=== PATIENT | female | born 1975 | race Caucasian/White ===

== ENCOUNTER 2020-01-13 14:43 | Outpatient (REF) | payer OTHER, SELFPAY | END 2020-01-13 14:44 | disposition home or self-care (01) | LOC: HO.LAB 14:43 | PROVIDERS: Visit Provider Nurse Practitioner Family | DX: M79.10 Myalgia, unspecified site (principal); Z13.9 Encounter for screening, unspecified; R19.7 Diarrhea, unspecified; R11.2 Nausea with vomiting, unspecified | CPT/HCPCS: 87086 ==

== ENCOUNTER 2020-01-13 14:45 | Outpatient (REF) | payer OTHER, SELFPAY ==
[2020-01-13 17:10] LABS: Anion Gap 12 (12-20); Blood Urea Nitrogen 11 mg/dL (9-16); Calcium 9.6 mg/dL (8.4-10.2); Carbon Dioxide 32 mmol/L (22-29); Chloride 101 mmol/L (96-108); Estimated Glomerular Filt Rate > 60; Glucose Random 81 mg/dL (60-115); Sodium 141 mmol/L (135-145)
== END 2020-01-13 14:46 | disposition home or self-care (01) ==
LOC: HO.HMGCLDS 14:45
PROVIDERS: PCP Internal Medicine; Visit Provider Nurse Practitioner Family
DX: R11.2 Nausea with vomiting, unspecified (principal); R19.7 Diarrhea, unspecified; M79.10 Myalgia, unspecified site; Z13.9 Encounter for screening, unspecified
CPT/HCPCS: 80048; U0003

== ENCOUNTER 2020-05-07 08:49 | Outpatient (REF) | payer OTHER, SELFPAY ==
--- NOTE | ~2020-05-07 | MM_ITS ---
EXAMINATION: MM SCREENING DIGITAL BREAST TOMOSYNTHESIS, BILATERAL CLINICAL INFORMATION: Screening. Asymptomatic. The lifetime risk of breast cancer based on the Tyrer-Cuzick Model is 12.7%. COMPARISON: Mammography: April 10, 2019 and studies dating back to November 03, 2013 TECHNIQUE: Digital breast tomosynthesis is performed in both the craniocaudal and mediolateral oblique views along with computer-aided detection (CAD). Synthesized 2D images are generated from the tomosynthesis. FINDINGS: The breasts are heterogeneously dense, which may obscure small masses (ACR BI-RADS breast composition Category c). There are no significant masses, abnormal calcifications, or other abnormalities. MM/MM tomosynthesis screening BI IMPRESSION: There are no significant changes from prior study. ASSESSMENT: BI-RADS 1: Negative RECOMMENDATION: Routine annual mammography screening. This patient's information was entered into a reminder system with a target due date for their next mammogram.
== END 2020-05-07 08:50 | disposition home or self-care (01) ==
LOC: HO.MAMMO 08:49
PROVIDERS: Visit Provider Internal Medicine
DX: Z12.31 Encounter for screening mammogram for malignant neoplasm of breast (principal)
CPT/HCPCS: 77063; 77067

== ENCOUNTER 2021-05-12 09:54 | Outpatient (REF) | payer OTHER, SELFPAY ==
--- NOTE | ~2021-05-12 | MM_ITS ---
EXAMINATION: MM SCREENING DIGITAL BREAST TOMOSYNTHESIS, BILATERAL CLINICAL INFORMATION: Screening. Asymptomatic. The lifetime risk of breast cancer based on the Tyrer-Cuzick Model is 13%. COMPARISON: Mammography: 05/07/2020, 04/10/2019, 04/04/2018, 03/28/2017 TECHNIQUE: Digital breast tomosynthesis is performed in both the craniocaudal and mediolateral oblique views along with computer-aided detection (CAD). Synthesized 2D images are generated from the tomosynthesis. FINDINGS: There are scattered areas of fibroglandular density (ACR BI-RADS breast composition Category b). There are no significant masses, abnormal calcifications, or other abnormalities. Parenchymal pattern is similar to prior studies. There is no developing density. The axilla and skin contours are unremarkable. MM/MM tomosynthesis screening BI IMPRESSION: No mammographic evidence of malignancy. ASSESSMENT: BI-RADS 1: Negative RECOMMENDATION: Routine annual mammography screening. This patient's information was entered into a reminder system with a target due date for their next mammogram.
== END 2021-05-12 09:55 | disposition home or self-care (01) ==
LOC: HO.MAMMO 09:54
PROVIDERS: Visit Provider Internal Medicine
DX: Z12.31 Encounter for screening mammogram for malignant neoplasm of breast (principal)
CPT/HCPCS: 77063; 77067

== ENCOUNTER → 2021-06-06 15:59 | Outpatient (BNVA) | payer OTHER, SELFPAY | PROVIDERS: PCP Internal Medicine; Referring Provider Internal Medicine; Visit Provider Nurse Practitioner | DX: Z13.89 Encounter for screening for other disorder (principal) ==

== ENCOUNTER 2022-07-27 13:09 | Outpatient (REF) | payer OTHER, SELFPAY ==
--- NOTE | ~2022-07-27 | MM_ITS ---
EXAMINATION: MM SCREENING DIGITAL BREAST TOMOSYNTHESIS, BILATERAL CLINICAL INFORMATION: Screening. Asymptomatic. The lifetime risk of breast cancer based on the Tyrer-Cuzick Model is 13%. COMPARISON: Mammography: 05/12/2021, 05/07/2020, 04/10/2019 TECHNIQUE: Digital breast tomosynthesis is performed in both the craniocaudal and mediolateral oblique views along with computer-aided detection (CAD). Synthesized 2D images are generated from the tomosynthesis. FINDINGS: There are scattered areas of fibroglandular density (ACR BI-RADS breast composition Category b). There are no significant masses, abnormal calcifications, or other abnormalities. Parenchymal pattern is similar to prior studies. There is no developing density or architectural abnormality. The axilla and skin contours are unremarkable. No significant changes. MM/MM tomosynthesis screening BI IMPRESSION: No mammographic evidence of malignancy. ASSESSMENT: BI-RADS 1: Negative RECOMMENDATION: Routine annual mammography screening. This patient's information was entered into a reminder system with a target due date for their next mammogram.
== END 2022-07-27 13:10 | disposition home or self-care (01) ==
LOC: HO.MAMMO 13:09
PROVIDERS: PCP Internal Medicine; Visit Provider Internal Medicine
DX: Z12.31 Encounter for screening mammogram for malignant neoplasm of breast (principal)
CPT/HCPCS: 77063; 77067

== ENCOUNTER 2023-04-04 10:05 | Day surgery (SDC) | payer OTHER, SELFPAY ==
[2023-04-02 10:32] VITALS: BMI 24.8
--- NOTE | 2023-04-04 11:00 | HO.ANESPROP2 ---
[facility] Active Problems Active Problems: All Active Problems (Updated 04/02/23 @ 10:31 by Nuria King, RN) Colon cancer screening (Acute) Dental abscess (Acute) Generalized anxiety disorder (Acute) Annual physical exam (Acute) ADHD (Acute) Asthma (Acute) Past Medical History Medical History Cervical dysplasia Dysplasia of acetabulum ADHD Adnexal cyst Asthma Family History Family History Father CAD (coronary artery disease) S/P CABG x 1 Diabetes Hypertension CVD (cardiovascular disease) Mother No problems noted. Maternal Grandmother Lymphoma Brother Bipolar 1 disorder Family history of problems with anesthesia: No Surgical History Surgical History Hx of cystoscopy History of endoscopy History of in vitro fertilization History of section History of Problems with Anesthesia: No Social History Social History Housing: Apartment Alcohol intake: current Patient Tobacco Use Status: Never used Tobacco e-Cigarette/Vaping Use: Never Used Second Hand Smoke Exposure: No Current occupational status: employed Meds Allergies Allergy/AdvReac Type Severity Reaction Status Date / Time amoxicillin Allergy Unknown Unknown Verified 04/04/23 10:57 Penicillins Allergy Unknown Unknown Verified 04/04/23 10:57 Active Medications: Current Medications Ondansetron HCl (Ondansetron Hcl 4 Mg/2 Ml Vial) 4 mg IVPUSH ONCE PRN PRN Reason: Nausea and Vomiting Exam Height,Weight and Vital Signs: Height 5 ft 3 in Weight 63.503 kg Airway Mallampati Class: III TM Dist: >3cm Neck ROM: Full Loose/Missing/Broken Teeth: No Heart: rrr Lungs: clear Assessment and Plan Final Anesthetic Review Family History of Problems with Anesthesia: No History of Problems with Anesthesia: No ASA Class: II Final Preanesthetic Review: No Changes in Pt Med Stat, Meds/Allgs Chart Reviewed, Consent Obtained/Reviewed and Anes Risks/Benef Reviewed Patient Risk: Intermediate Procedure Risk: Low Anesthetic Plan Anesthetic Plan: MAC: Disposition: Standard PACU
[2023-04-04 11:04] VITALS: BMI 25.2
--- NOTE | 2023-04-04 11:19 | MHC.SHP ---
Pre-Procedural Eval Section A - 24 Hr Update-Section A only Date of Service: 04/04/23 Section B - Complete if H&P > 30 days Chief Complaint: Encounter for screening for malignant neoplasm of Details of Present Illness: PMX Asthma ADHD Acetabular dysplasia left hip Generalized anxiety disorder GERD * SURGICAL HISTORY section History of IVF Present Medications: see Short Stay Collaborative assessment Allergies: Allergies Allergy/AdvReac Type Severity Reaction Status Date / Time amoxicillin Allergy Unknown Unknown Verified 04/04/23 10:57 Penicillins Allergy Unknown Unknown Verified 04/04/23 10:57 Review of Systems Review of Systems Comment: Ten point ROS negative Exam Exam Comment: Gen appear: No acute distress HEENT: no icterus Chest: No overt resp distress Abd: soft, nontender, nondistended Psych: Stable affect, answering questions appropriately Neuro: A/Ox3 noted to move all extremities spontaneously Ext: no peripheral edema Plan Diagnosis/Plan: Unchanged I have reviewed the history and physical and performed a pertinent physical examination on my patient. No changes have occurred unless specified. Time Spent With Patient Time: Total time managing care of this patient today ____ minutes.
[2023-04-04 11:33] LABS: UPreg QC Valid YES; Urine Pregnancy NEGATIVE (NEGATIVE)
--- NOTE | 2023-04-04 11:59 | P.OP_ITS ---
Operative Note Operative Note Date of Service: 04/04/23 Narrative: Procedure: Colonoscopy Indication: Screening Endoscopist: Nusrat Obrien MD Anesthesia Provider: Dr Faustino Velez Anesthesia type: MAC Instrument: Olympus [id number]-H190L Consent: Indication, risks vs benefits, and alternatives were discussed with the patient who gave written informed consent to proceed. EKG, pulse, pulse oximetry and blood pressure were monitored throughout the procedure. Please see anesthesia flowsheet. Procedure: The patient was brought to the procedure room and placed in the left lateral decubitus position. IV medications were administered by the anesthesia provider in attendance. A digital rectal exam was performed which was abnormal due to finding of hemorrhoids. A distal attachment cap was affixed to the tip of the scope and the colonoscope was then inserted through the anus and advanced through the colon to the cecum at 75 cm,and terminal ileum. Appendiceal orifice and ileocecal valve were identified. Mucosa was carefully examined under high definition white light as the instrument was slowly withdrawn in a retrograde panoramic fashion. Retroflexion was performed in rectum. The procedure was not difficult. There were no immediate obvious complications. The quality of the prep was BBPS: 2+3+2 = adequate Withdrawal time 11 minutes. Limitations: No limitations. Findings: Mucosa: Normal to cecum and terminal ileum. Protruding lesions: * 1 sessile polyp of size 5 mm in cecum. Cold snare polypectomy was performed. The polyp was completely removed and retrieved. * Medium internal hemorrhoids without stigmata of recent bleeding. Impression: 1. Normal colon and terminal ileum mucosa 2. Total of 1 polyp removed 3. External and internal hemorrhoids Recommendations: - Follow path results. - Repeat colonoscopy in 5 years if polyp is a serrated lesion, otherwise 7-10 years.
[2023-04-04 12:05] VITALS: BP 109/76; PULSE 84; RESP 16; TEMP 37; O2SAT 100
[2023-04-04 12:20] VITALS: BP 132/87; PULSE 73; RESP 16; TEMP 36.7; O2SAT 100
== END 2023-04-04 12:54 | disposition home or self-care (01) ==
PROVIDERS: Anesthesiology; PCP Internal Medicine; Visit Provider Internal Medicine
PROC: 0DJD8ZZ Inspection of Lower Intestinal Tract, Via Natural or Artificial Opening Endoscopic (ICD-10-PCS; CPT 45378; principal; 2023-04-04 11:50)
DX: Z12.11 Encounter for screening for malignant neoplasm of colon (principal); K63.5 Polyp of colon; K64.8 Other hemorrhoids; K64.4 Residual hemorrhoidal skin tags; K21.9 Gastro-esophageal reflux disease without esophagitis; J45.909 Unspecified asthma, uncomplicated; N87.9 Dysplasia of cervix uteri, unspecified; Q65.89 Other specified congenital deformities of hip; F90.9 Attention-deficit hyperactivity disorder, unspecified type; F41.1 Generalized anxiety disorder; Z79.899 Other long term (current) drug therapy; Z88.0 Allergy status to penicillin; Z88.1 Allergy status to other antibiotic agents
CPT/HCPCS: 45385; 81025; 88305; J2704

== ENCOUNTER → 2023-04-04 10:05 | Outpatient (BNV) | payer OTHER, SELFPAY | PROVIDERS: PCP Internal Medicine; Visit Provider Internal Medicine | DX: Z12.11 Encounter for screening for malignant neoplasm of colon (principal); K63.5 Polyp of colon; K64.8 Other hemorrhoids | CPT/HCPCS: 45385 ==

== ENCOUNTER 2023-04-05 11:23 | Outpatient (AMB) | payer OTHER, SELFPAY ==
[2023-04-05 11:25] VITALS: BP 124/80; PULSE 73; O2SAT 100; BMI 25.3
--- NOTE | 2023-04-05 11:25 | MHC.PC.OV ---
Vital Signs 04/05/23 11:25 Height 5 ft 3 in Weight 64.886 kg BMI 25.3 BP 124/80 Blood Pressure Location Lt brachial Position Sitting Pulse 73 Pulse Source Pulse Oximeter Pulse Oximetry (%) 100 Oxygen Delivery Method Room Air Intake Visit Reasons: Annual Physical Intake Note: Patient is here today for a physical. Personal Clothing Laundry Aide Required: No Allergies amoxicillin Allergy (Unknown, Verified 04/05/23 11:27) Unknown Penicillins Allergy (Unknown, Verified 04/05/23 11:27) Unknown Medication List - Last Reconciled 04/05/23 by Dejuan Sal MD albuterol sulfate 90 mcg/actuation 2 puffs inhalation Q6H PRN bupropion HCl 300 mg PO QAM 90 days fexofenadine 180 mg PO DAILY multivitamin (Daily Multi-Vitamin tablet) 1 tab PO DAILY [probiotic ] Tobacco use date assessed: 04/05/23 Dental Screening Dental Screen Date: 04/05/23 Did you have a dental visit in the last 12 months?: Yes Did you have a dental problem in the last 6 months where you did not have access to dental care?: No Was dental information given to patient?: Patient has dentist HPI Annual Physical HPI Details 47-year-old female with a history of asthma and generalized anxiety disorder last seen in January 2021. Patient's mammogram is up-to-date colonoscopy is up-to-date March 2023. dizzy 3 week- father parkinson noted tremors and grandfather . [facility] Medical History (Updated 04/05/23 @ 12:14 by Dejuan Sal MD) Colon cancer screening Dental abscess Cervical dysplasia Dysplasia of acetabulum ADHD Adnexal cyst Asthma Surgical History Hx of cystoscopy History of endoscopy History of in vitro fertilization History of section Family History Father CAD (coronary artery disease) S/P CABG x 1 Diabetes Hypertension CVD (cardiovascular disease) Mother No problems noted. Maternal Grandmother Lymphoma Brother Bipolar 1 disorder Social History (Updated 04/05/23 @ 12:03 by Dejuan Sal MD) Housing: Apartment Alcohol intake: current Comment: 1 glass a week Patient Tobacco Use Status: Never used Tobacco e-Cigarette/Vaping Use: Never Used Second Hand Smoke Exposure: No Current occupational status: employed Cognitive needs: No Hearing needs: No Vision needs: No Questionnaire PHQ-9 Over the last 2 weeks, how often have you been bothered by any of the following problems? 1. Little interest or pleasure in doing things: not at all 2. Feeling down, depressed, or hopeless: not at all 3. Trouble falling or staying asleep, or sleeping too much: not at all 4. Feeling tired or having little energy: not at all 5. Poor appetite or overeating: not at all 6. Feeling bad about yourself - or that you are a failure or have let yourself or your family down: not at all 7. Trouble concentrating on things, such as reading the newspaper or watching television: not at all 8. Moving or speaking so slowly that other people could have noticed. Or the opposite - being so fidgety or restless that you have been moving around a lot more than usual: not at all 9. Thoughts that you would be better off or of hurting yourself in some way: not at all Total score: 0 Depression Screening Interpretation: Negative Depression Screening Done: Yes Source: Developed by Drs. Dameon Velarde, Diamond Padron, Iglesia Dillard and colleagues, with an educational mare from [employer] in [place]. Thrive Questionnaire Date Thrive assessed: 01/19/21 I am a: Patient What is your living situation today?: I have a steady place to live THRIVE Score: 0 AUDIT C Alcohol Use Questionnaire (AUDIT-C) 1. How often do you have a drink containing alcohol?: Monthly or less 2. How many drinks containing alcohol do you have on a typical day when you are drinking?: 1 or 2 3. How often do you have six or more drinks on one occasion?: Never Total Score: 1 DARIA-7 AMB Questionnaire DARIA-7 Date DARIA - 7 assessed: 04/05/23 Feeling nervous, anxious, or on edge: 0 = Not at all Not being able to stop or control worryin = Not at all Worrying too much about different things: 0 = Not at all Trouble relaxin = Not at all Being so restless that it is hard to sit still: 0 = Not at all Becoming easily annoyed or irritable: 0 = Not at all Feeling afraid as if something awful might happen: 0 = Not at all Total DARIA-7 score (0-4 normal; 5-9 mild; 10-14 moderate; 15-21 severe): 0 Source: Developed by Drs. Dameon Velarde, Diamond Padron, Iglesia Dillard and colleagues, with an educational mare from [employer] in [place]. Review of Systems Const Denies poor appetite and Denies weakness Eyes Denies no additional complaints ENT Reports Normal hearing present, Denies dizziness, Denies nasal congestion, Denies tinnitus and Denies sore throat Card Denies chest pain, Denies syncope, Denies rapid heart rate and Denies dyspnea Resp Denies cough and Denies dyspnea GI Denies change in stool character, Reports constipation, Denies diarrhea, Denies nausea and Denies vomiting Denies urinary frequency, Denies difficulty voiding and Denies dysuria Neuro Reports Normal hearing present, Denies confusion, Denies dizziness, Denies syncope and Denies weakness Psych Denies confusion Physical exam (Primary Care) Vital Signs: Last Vital Signs Pulse 73 04/05/23 11:25 BP 124/80 04/05/23 11:25 Pulse Ox 100 04/05/23 11:25 Oxygen Delivery Method Room Air 04/05/23 11:25 BMI result Body Mass Index 25.3 Tobacco/Smoking Status: Tobacco use Status Tobacco use date assessed 04/05/23 04/05/23 11:33 Patient Tobacco Use Status Never used Tobacco 04/05/23 12:03 e-Cigarette/Vaping Use Never Used 04/05/23 12:03 PHQ-9: PHQ-9 Score PHQ-9: Total score 0 04/05/23 12:00 Depression Screening Interpretation: Negative Thrive Assessment: Date of Thrive Assessment Date Thrive assessed 01/19/21 04/05/23 11:27 Const General: No confusion Orientation/consciousness: No confusion HENMT Head: Yes normocephalic Ears: external ears normal and TM's normal bilaterally Face and sinus: Yes normal facial exam Mouth: moist mucous membranes Throat: Yes tonsils normal Eyes Conjunctivae: conjunctivae normal Pupils: Equal, round and reactive pupils present and Pupil accommodation reflex normal Direct Ophthalmoscopy: normal light reflex Neck Neck: No lymphadenopathy Thyroid: Thyroid normal Chest Chest palpation & inspection: normal inspection of the chest Resp Effort & Inspection: normal respiratory effort and no audible wheezes Auscultation: clear to auscultation bilaterally, no crackles, no wheezes and lung sounds not diminished Cardio Rate: regular rate Rhythm: regular rhythm Peripheral pulses: radial pulses present and dorsalis pedis present GI Palpation (GI): no masses Auscultation: normal bowel sounds and normoactive bowel sounds Rectal Exam - Female: deferred Skin General skin exam: no rashes or lesions noted Rashes: no rashes Neuro General: No confusion Cranial nerves: Yes Equal, round and reactive pupils present and Yes Normal hearing present Cognition (Neuro): normal cognition Gait exam (Neuro): Normal gait present Motor exam (neuro): 5/5 motor strength present throughout Deep tendon reflexes (DTR's): Right brachioradialis reflex intensity grade: 2+, Left brachioradialis reflex intensity grade: 2+, Right patellar reflex intensity grade: 2+ and Left patellar reflex intensity grade: 2+ Extrem General: No edema Immunizations tetanus-diphtheria toxoids-Td 2 Lf unit-2 Lf unit/0.5 mL IM suspension Performing Provider: Dejuan Sal MD Performing Location: [facility] Administered by: Sania Jenkins CMA on 04/05/23 12:23 Dose Route Admin Location Dispensed Lot Number Expiration Date [employer] 0.5 mL IM Left Deltoid 0.5 mL [id number] 06/17/23 [address]-1 [employer] VIS Given Date VIS Provided VIS Publication Date 04/05/23 Single Vaccine 20 Eligibility Eligibility Date Funding Source Not [facility] Eligible 04/05/23 [facility] funds Assessment and Plan Assessment & Plan (1) Annual physical exam: Code(s): Z00.00 - Encounter for general adult medical examination without abnormal findings (2) Generalized anxiety disorder: Code(s): F41.1 - Generalized anxiety disorder Plan: Continue with present medication (3) Asthma: Code(s): J45.909 - Unspecified asthma, uncomplicated Plan: Continue with inhaler as needed (4) Essential tremor: Code(s): G25.0 - Essential tremor Plan: reassurance Orders: Orders Complete Blood Count Auto Diff Today F41.1 - Generalized anxiety disorder Comprehensive Met. Panel Today F41.1 - Generalized anxiety disorder Free T4 (Free Thyroxine) Today F41.1 - Generalized anxiety disorder Vitamin B12 and Folate Today F41.1 - Generalized anxiety disorder Lipid Panel Today E78.00 - Pure hypercholesterolemia, unspecified, F41.1 - Generalized anxiety disorder Thyroid Stimulating Hormone Today F41.1 - Generalized anxiety disorder UA w Microscopic Today F41.1 - Generalized anxiety disorder Td State Immunization Today Z23 - Encounter for immunization Coding Level of Care Code Est Pt Prev Care [id number]([id number]) Diagnoses Annual physical exam Z00.00 Generalized anxiety disorder F41.1 Asthma J45.909 Essential tremor G25.0
== END 2023-04-05 12:29 | disposition home or self-care (01) ==
PROVIDERS: PCP Internal Medicine; Visit Provider Internal Medicine
DX: Z00.00 Encounter for general adult medical examination without abnormal findings (principal); F41.1 Generalized anxiety disorder; J45.909 Unspecified asthma, uncomplicated; Z23 Encounter for immunization; G25.0 Essential tremor
CPT/HCPCS: 90471; 90714; 99396

== ENCOUNTER 2023-04-19 08:51 | Outpatient (REF) | payer OTHER, SELFPAY ==
[2023-04-19 09:10] LABS: MANUAL DIFF FLAG NO
[2023-04-19 10:00] LABS: Basophils Percent Auto 0.3 % (0-2); Eosinophils Percent Auto 0.9 % (0-4); Hematocrit 39.6 % (37.0-47.0); Hemoglobin 13.3 g/dl (12.0-16.0); Imm Gran Abs Auto 0.01 X10*3/uL (0.00-0.03); Imm Gran Pct Auto 0.3 % (0.0-0.4); Lymphocytes Absolute Auto 0.9 X10*3/uL (1.2-4.9); Lymphocytes Percent Auto 24.3 % (20-40); Mean Corpuscular HGB Conc 33.6 g/dl (31.0-35.0); Mean Corpuscular Hemoglobin 28.2 pg (27.0-33.0); Mean Corpuscular Volume 84.1 fL (80.0-98.0); Monocytes Absolute Auto 0.3 X10*3/uL (0.1-1.2); Monocytes Percent Auto 9.1 % (2-11); Neutrophils Absolute Auto 2.3 x10*3/uL (2.0-8.3); Neutrophils Percent Auto 65.1 % (45-73); Platelet Count 167 X10*3/uL (160-400); Red Blood Count 4.71 X10*6/uL (4.20-5.50); Red Cell Distribution Width 12.1 % (11.0-16.0); White Blood Count 3.5 X10*3/uL (4.8-10.8)
[2023-04-19 11:33] LABS: Alanine Aminotransferase 23 U/L (0-31); Albumin Level 4.4 g/dL (3.5-5.0); Alkaline Phosphatase 89 U/L (39-117); Anion Gap 9 (12-20); Aspartate Amino Transferase 22 U/L (5-31); Bilirubin Total 0.8 mg/dL (0.0-1.0); Blood Urea Nitrogen 15 mg/dL (9-16); Calcium 9.3 mg/dL (8.4-10.2); Carbon Dioxide 31 mmol/L (22-29); Chloride 105 mmol/L (96-108); Cholesterol 162 mg/dL (<200); Estimated Glomerular Filt Rate > 60; Glucose Random 87 mg/dL (60-115); HDL Cholesterol 67 mg/dL (>40); LDL Cholesterol Calculated 86 mg/dL (<100); Sodium 141 mmol/L (135-145); Total Protein 7.4 g/dL (6.5-8.0); Triglycerides 48 mg/dL (<150)
[2023-04-19 11:48] LABS: Appearance Urine Clear; Color Urine Yellow; Glucose Urine UA Negative (Negative); Leukocyte Esterase Urine Large (3+) (Negative); Nitrite Urine Negative (Negative); UMIC TRIGGER UA YES; Urine Blood Negative (Negative); Urine Ketones Negative (Negative); Urine Protein Negative (Neg-Trace)
[2023-04-19 11:52] LABS: Free T4 (Free Thyroxine) 0.95 ng/dL (0.71-1.85); Thyroid Stimulating Hormone 1.04 uIU/mL (0.32-4.0)
[2023-04-19 11:55] LABS: Folate 11.9 ng/mL (> or = 4.0); Vitamin B12 909 pg/mL (200-900)
[2023-04-19 12:05] LABS: Bacteria Urine 1+ (None Seen); Hyaline Casts Urine 0-2 /LPF (0-2); RBC Urine 0-2 /HPF (0-2); WBC Urine 0-5 /HPF (0-5)
== END 2023-04-19 08:52 | disposition home or self-care (01) ==
LOC: HO.LAB 08:51
PROVIDERS: PCP Internal Medicine; Visit Provider Internal Medicine
DX: F41.1 Generalized anxiety disorder (principal); E78.00 Pure hypercholesterolemia, unspecified
CPT/HCPCS: 36415; 80053; 80061; 81001; 82607; 82746; 84439; 84443; 85025

== ENCOUNTER 2023-04-19 10:00 | Outpatient (AMB) | payer OTHER, SELFPAY ==
[2023-04-19 10:04] VITALS: BP 111/78; PULSE 84; BMI 25.2
--- NOTE | 2023-04-19 10:04 | MHC.OFFVIS ---
Intake Vital Signs 04/19/23 10:04 Height 5 ft 3 in Weight 142 lb 6.698 oz BMI 25.2 BP 111/78 Blood Pressure Location Lt brachial Position Sitting Pulse 84 Intake Visit Reasons: S/P [place]; Dr. Obrien Intake Note: CC:Patient in office today in follow up s/p colonoscopy 04/04/23. Patient reports doing well and denies having any GI concerns today. Allergies amoxicillin Allergy (Unknown, Verified 04/19/23 10:11) Unknown Penicillins Allergy (Unknown, Verified 04/19/23 10:11) Unknown HPI S/P [place]; Dr. Obrien HPI Details Assessment & Plan (1) Colon cancer screening: Code(s): Z12.11 - Encounter for screening for malignant neoplasm of colon Plan: This is her first colonoscopy. She will have a lot of gas at times with gas trapping and feeling of pressure under the ribs, but no CIC or diarrhea. She takes pro and pre-biotics for this. She has a long hx of GERD, but it is generally well controlled. She had an EGD in the past for this that was negative, and thought she would need a repeat - but this is not an indication for an EGD. She denies any prior problems with anesthesia or sedation. Her asthma is well controlled and no card problems. NO ID problems. There is no known FHX of CRC or polyps. However, her parents have never spoken to her about her colonoscopy is so I prompt her that if she finds out differently to let us know as this would affect her risk and her follow-up intervals. Return office visit after the procedure. Orders: Orders Comprehensive Met. Panel Today Z12.11 - Encounter for screening for malignant neoplas m of colon Complete Blood Cou nt Auto Diff Today Z12.11 - Encounter for screening for malignant neoplas m of colon Medications: New peg 3350-electroly ginette 236-22.74-6.74 -5.86 gram (Golyt andrews) until feca l effluent is sabrina r; do not exceed a total volume of 2 ,000 mL 240 mL PO Q10M 1 day 4,000 mL 0RF Z12.11 - Encounter for screening for malignant neoplas m of colon LABS: Laboratory Tests 01/13/20 04/19/23 04/19/23 14:53 09:09 09:09 WBC 3.5 L Hgb 13.3 Hct 39.6 Plt Count 167 Estimated GFR > 60 AST Pending ALT Pending Alkaline Phosphata se Pending TSH Pending COLONOSCOPY 04/04/23 Findings: Mucosa: Normal to cecum and terminal ileum. Protruding lesions: 1 sessile polyp of size 5 mm in cecum. Cold snare polypectomy was performed. The polyp was completely removed and retrieved. Medium internal hemorrhoids without stigmata of recent bleeding. Impression: 1. Normal colon and terminal ileum mucosa 2. Total of 1 polyp removed 3. External and internal hemorrhoids Recommendations: - Follow path results. - Repeat colonoscopy in 5 years if polyp is a serrated lesion, otherwise 7-10 years. BIOPSY Received: 04/04/23 Diagnosis Cecum, polypectomy: Colonic mucosa with prominent lymphoid aggregates TODAY'S VISIT The procedure should be repeated in 10 years since the polyp was not an adenoma. The procedure was well tolerated. The results were explained and the patient is agreeable to the follow-up interval as stated. The bowel pattern has returned to normal. Education was provided to tell any 1st degree relatives about their findings to be sure that they are screened by age 45. Educated that they will be put on a recall list when it is time for their repeat scope but should they move out of state or away from the hospital they will need to remember along with their primary to repeat the procedure in a timely fashion to avoid any adverse complications. [facility] Medical History Colon cancer screening Dental abscess Cervical dysplasia Dysplasia of acetabulum ADHD Adnexal cyst Asthma Surgical History (Updated 04/19/23 @ 10:12 by JUANA Correa H/O colonoscopy Hx of cystoscopy History of endoscopy History of in vitro fertilization History of section Family History Father CAD (coronary artery disease) S/P CABG x 1 Diabetes Hypertension CVD (cardiovascular disease) Mother No problems noted. Maternal Grandmother Lymphoma Brother Bipolar 1 disorder Social History Housing: Apartment Alcohol intake: current Comment: 1 glass a week Patient Tobacco Use Status: Never used Tobacco e-Cigarette/Vaping Use: Never Used Second Hand Smoke Exposure: No Current occupational status: employed Cognitive needs: No Hearing needs: No Vision needs: No Review of Systems Const Denies fatigue, Denies fever(s), Denies night sweats, Denies poor appetite and Denies weight loss ENT Reports Normal hearing present, Denies dental pain, Denies dysphagia, Denies hearing loss, Denies mouth pain, Denies odynophagia, Denies throat swelling, Denies tongue swelling and Reports other (Dentition adequate) Card Reports no additional complaints Resp Reports no additional complaints GI Details: Denies abdominal pain, Denies melena, Denies bloating, Denies hematochezia, Denies constipation, Denies GI cramping, Denies dysphagia, Denies excessive flatus, Denies early satiety, Denies heartburn, Denies diarrhea, Denies nausea, Denies odynophagia, Denies vomiting and Denies hematemesis Skin/Breast Denies pruritus, Denies lesions, Denies rash and Denies jaundice Neuro Reports Normal hearing present and Denies Abnormal speech present Endo Denies fatigue Aller/Immun Denies throat swelling and Denies tongue swelling Physical Exam Vital Signs: Last Vital Signs Pulse 84 04/19/23 10:04 BP 111/78 04/19/23 10:04 BMI result Body Mass Index 25.2 Const General: cooperative, no acute distress, well developed and well groomed Nutritional Appearance: average body habitus and well nourished Orientation/consciousness: oriented to person, oriented to place and oriented to time Limitations: No language barrier HEENT Head: Yes normocephalic and Yes atraumatic Eyes General: appearance normal, both eyes and all related structures Pupils: Equal, round and reactive pupils present Neck Neck: Yes normal visual inspection and Yes no lymphadenopathy Thyroid: Thyroid normal Resp Effort & Inspection: normal respiratory effort and able to speak in complete sentences Auscultation: clear to auscultation bilaterally Cardio Rate: regular rate Rhythm: regular rhythm Heart sounds: Normal, physiologic split S2 sound present Peripheral pulses: radial pulses present and posterior tibial pulses present GI Inspection: No distended and No Abdominal panniculus present Palpation (GI): Soft to palpation, nontender, no guarding, not rigid and No hepatosplenomegaly present Percussion: Yes normal to percussion Auscultation: normal bowel sounds Rectal Exam - Female: deferred Skin General skin exam: no rashes or lesions noted, turgor normal, skin not dry, no jaundice, No spider nevi and no striae Rashes: no rashes Nails: normal Neuro General: oriented to person, oriented to place and oriented to time Cranial nerves: Yes Equal, round and reactive pupils present and Yes Normal hearing present Speech: No Abnormal speech present Extrem General: Yes normal to inspection, No clubbing, No cyanosis and No edema Psych Appearance: grossly normal and well kempt Mental Status: mental status grossly normal Speech and movement: Normal speech and movement present Affect: normal affect Attitude: cooperative Thought process: Normal thought process present and not confabulating Thought content: Normal thought content present Insight: Good insight present (Psych) Judgement: Good judgement present (Psych) Assessment & Plan Assessment & Plan (1) H/O colonoscopy: Comment: 2023 scope equaled lymphoid aggregate gets only repeat in 10 years Code(s): Z98.890 - Other specified postprocedural states Plan The procedure should be repeated in 10 years since the polyp was not an adenoma. The procedure was well tolerated. The results were explained and the patient is agreeable to the follow-up interval as stated. The bowel pattern has returned to normal. Education was provided to tell any 1st degree relatives about their findings to be sure that they are screened by age 45. Educated that they will be put on a recall list when it is time for their repeat scope but should they move out of state or away from the hospital they will need to remember along with their primary to repeat the procedure in a timely fashion to avoid any adverse complications. Coding Level of Care Code Est Pt Level 3 (39416) Diagnoses H/O colonoscopy Z98.890
== END 2023-04-19 10:20 | disposition home or self-care (01) ==
PROVIDERS: PCP Internal Medicine; Visit Provider Nurse Practitioner
DX: Z98.890 Other specified postprocedural states (principal)
CPT/HCPCS: 99213

== ENCOUNTER 2023-08-05 12:56 | Outpatient (REF) | payer OTHER, SELFPAY | END 2023-08-05 12:57 | disposition home or self-care (01) | LOC: HO.MAMMO 12:56 | PROVIDERS: PCP Internal Medicine; Visit Provider Internal Medicine | DX: Z13.21 Encounter for screening for nutritional disorder (principal) | CPT/HCPCS: 77063; 77067 ==

== ENCOUNTER → 2023-08-05 13:00 | Outpatient (BNV) | payer OTHER, SELFPAY | PROVIDERS: PCP Internal Medicine; Visit Provider Radiology Diagnostic Radiology | DX: Z12.31 Encounter for screening mammogram for malignant neoplasm of breast (principal) | CPT/HCPCS: 77063; 77067 ==

== ENCOUNTER 2024-04-10 11:23 | Outpatient (AMB) | payer OTHER, SELFPAY ==
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
[2024-04-10 11:35] VITALS: BP 120/72; PULSE 89; TEMP 36.2; O2SAT 95; BMI 25.7
--- OUTSIDE RECORDS SUMMARY | 2024-04-10 13:34 | XMS_ITS | Patient Health Record ---
Author Organization [facility] Address [address] [place] [address] Care Team Providers Care Electronic Commerce Specialist Name Role Phone JOHNSON LE M.D. Primary Care Provider KEMI Syed Unavailable [phone] Allergies Allergen (clinical drug ingredient) Drug/Non Drug Allergy documented on EMR Reaction Allergy Type Onset Date Status amoxicillin Amoxicillin hives Drug Allergy Act tommy Penicillin hives Drug Allergy Active Reason For Referral No Information Medications Medication SIG (Take, Route, Frequency, Duration) Notes Start Date End Date Status Wellbutrin 300 mg Once a day 12/12/2016 Active Fexofenadine HCl 180 MG 1 tablet Swallow whole with water; do not take with fruit juices. Orally Once a day for 30 day(s) Active Albuterol PRN NEEDED Active Mirena (52 MG) 20 MCG/DAY as directed Intrauterine Inserted 08/21/17 Active Social History Tobacco Use: Social History Observation Description Date Details (start date - stop date) Never Smoker NA - NA Tobacco Use/Smoking Question Answer Notes Are you a nonsmoker Sexual History Question Answer Notes Had sex in the past 12 months (vaginal, oral, or anal)? Yes with Men only Prevention strategies discussed: Other Tobacco use other than smoking: Question Answer Notes Are you an other tobacco user? No Problems Problem Type SNOMED Code ICD Code Onset Dates Problem Status W/U Status Risk Notes Problem Excessive and frequent menstruation (679207597) Excessive and frequent menstruation with regular cycle (N92.0) Active confirmed Problem Postmenopausal bleeding (98856778) Postmenopausal bleeding (N95.0) Active confirmed Problem Attention deficit hyperactivity disorder, predominantly inattentive type (13375455) Attention-deficit hyperactivity disorder, predominantly inattentive type (F90.0) Active confirmed Problem Uncomplicated asthma (disorder) (438498424) Unspecified asthma, uncomplicated (J45.909) Active confirmed Problem Postcoital bleeding (22404223) Postcoital and contact bleeding (N93.0) Active confirmed Problem Abnormal uterine bleeding (81138532212690) Abnormal uterine and vaginal bleeding, unspecified (N93.9) Active confirmed Problem COVID-19 (820835266) COVID-19 (U07.1) Active confirmed Vital Signs Temperature 98.0 degrees Fahrenheit 01/24/2024 Blood pressure diastolic 78 mm Hg 01/24/2024 Height 64 in 01/24/2024 Blood pressure systolic 120 mm Hg 01/24/2024 Weight 146 lbs 01/24/2024 BMI 25.06 kg/m2 01/24/2024 Encounters Encounter Location Date Provider Diagnosis [address] [address] 01/24/2024 KEMI KENDALL Encounter for gynecological examination (general) (routine) without abnormal findings Z01.419 ; Encounter for screening mammogram for malignant neoplasm of breast Z12.31 and Presence of (intrauterine) contraceptive device Z97.5 Assessments Encounter Date Diagnosis (ICD Code) Assessment Notes Treatment Notes Treatment Clinical Notes Section Notes 01/24/2024 Encounter for gynecological examination (general) (routine) without abnormal findings (ICD-10 - Z01.419) During the visit, the following areas of concern were addressed: Discussed cervical cancer screening with either cytology alone every 3 years or high risk HPV co-testing every 5 years as per ASCCP guidelines. Advised continued annual pelvic exams. Patient encouraged to increase her level of exercise. SBE technique encouraged/taug ht. Patient reminded when annual mammogram is due. Patient encouraged to keep colon screening up to date. 01/24/2024 Encounter for screening mammogram for malignant neoplasm of breast (ICD-10 - Z12.31) 01/24/2024 Presence of (intrauterine) contraceptive device (ICD-10 - Z97.5) Continue Mirena until 2025. Then assess the need for replacement Plan Of Treatment Pending Test Test Name Order Date Test, Urine 06/29/2016 Ultrasound : Sono Hystergram 06/13/2016 THIN PREP,HPV,MAURICIO IF HPV+/CYT-,CT/GC(>2 9YR)(SCRN) 06/14/2017 PELVIC ULTRASOUND W/TRANSVAGINAL 019 ULTRASOUND: PELVIC W/TRANSVAGINAL 2022 MM Digital Screening Mammogram 3D 2022 MM Digital Screening Mammogram 3D 2023 MM Digital Screening Mammogram 3D 2021 MM Digital Screening Mammogram 3D 2018 Next Appt Details Provider Name:KEMI Kaylin Tolliver, 01/29/2025 10:30:00 AM, [address], [address], [place], [address], Insurance Providers Payer Name Payer Address Payer Phone Subscriber Number Group Number Insured Name Patient Relationship to Insured Coverage Start Date Coverage End Date [facility] [address] [place] [address] [id number] MARZENA RANDOLPH Self - patient is the insured Medical (General) History Medical History History ICD Code Unspecified asthma, uncomplicated J45.90 9 Excessive and frequent menstruation with regular cycle N92.0 Postcoital and contact bleeding N93.0 Mastodynia N64.4 Other intra-abdominal and pelvic swellin g, mass and lump R19.09 Attention-deficit hyperactivity disorder , predominantly inattentive type F90.0 COVID-19 U07.1 Surgical History Surgery Date(Month/Year) 2011 Hospitalization History Reason Date(Month/Year) See Surgical Hx
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
== END 2024-04-10 12:21 | disposition home or self-care (01) ==
PROVIDERS: PCP Internal Medicine; Visit Provider Internal Medicine
DX: Z00.00 Encounter for general adult medical examination without abnormal findings (principal); J45.909 Unspecified asthma, uncomplicated; F41.1 Generalized anxiety disorder; H91.90 Unspecified hearing loss, unspecified ear; Z23 Encounter for immunization

== ENCOUNTER → 2024-04-10 11:23 | Outpatient (BNVA) | payer OTHER, SELFPAY | PROVIDERS: PCP Internal Medicine; Visit Provider Internal Medicine | DX: Z00.00 Encounter for general adult medical examination without abnormal findings (principal); Z23 Encounter for immunization; J45.909 Unspecified asthma, uncomplicated; F41.1 Generalized anxiety disorder; H91.90 Unspecified hearing loss, unspecified ear; F90.9 Attention-deficit hyperactivity disorder, unspecified type; Z79.899 Other long term (current) drug therapy | CPT/HCPCS: 90471; 90656; 96127 ==

== ENCOUNTER 2024-05-07 12:54 | Outpatient (REF) | payer OTHER, SELFPAY ==
--- OUTSIDE RECORDS SUMMARY | 2024-05-07 15:57 | XMS_ITS ---
Author Organization [facility] Address [address] [place] [address] Care Team Providers Care Retail Banking Manager Name Role Phone JOHNSON LE M.D. Primary Care Provider KEMI Syed Unavailable [phone] Allergies Allergen (clinical drug ingredient) Drug/Non Drug Allergy documented on EMR Reaction Allergy Type Onset Date Status amoxicillin Amoxicillin hives Drug Allergy Act tommy Penicillin hives Drug Allergy Active REASON FOR VISIT Annual QUEEN PRODUCER Physical Medications Medication SIG (Take, Route, Frequency, [...] Status Risk Notes Problem Abnormal uterine bleeding (90114218101863) Abnormal uterine and vaginal bleeding, unspecified (N93.9) Active confirmed Problem Postmenopausal bleeding (18346717) Postmenopausal bleeding (N95.0) Active confirmed Vital Signs Temperature 98.0 degrees Fahrenheit 01/24/20 24 Blood pressure systolic 120 mm Hg 01/24/20 24 Blood pressure diastolic 78 mm Hg 024 Height 64 in 01/24/2024 Weight 146 lbs 01/24/2024 BMI 25.06 kg/m2 01/24/2024 Encounters Encounter Location Date Provider Diagnosis [address] [address] 01/24/2024 KEMI VICENTES Encounter for gynecological examination (general) (routine) without [...] Follow Up: 1 Year, Reason: Y early Banana Loader Exam Provider Name:KEMI VICENTE Unruly, 01/29/2025 10:30:00 AM, [address], [address], [place], [address], Progress Notes * LORI RANDOLPH :1975 (48 yo F)Acc No.[id number]:01/24/2024 PROGRESS NOTES Patient:?LORI RANDOLPH Provider:?KEMI KENDALL MD :1975???Age:48 Y???Sex:Female D ate:01/24/2024 Address:[address] [place] [address] [facility] Pcp:JOHNSON LE M.D. 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 ? She has been in state [...] last mammogram was 04/2023, per pt, at [place]. ? She does not have a family history of colon cancer. She has had a colonoscopy. The most recent colonoscopy was in?04/2023, follow up in 5 yrs due to a polyp. ? The patient does exercise. She exercises x 3-4 days/week by walking. She also plays?sports with her son. * ROS:?Annual Banana Loader Exam ROS:?Bowel habit changes?denies.?Bladder symptoms?denies.?Vaginal discharge, unusual?denies.?Vaginal itch or odor?denies.?weight or appetite changes?denies.?Chest pains, SOB?denies.?depression?denies.?Breast:?Denies?Breast lump.?Denies?Nipple discharge.?Hematology:?Denies?Swollen glands.?Skin:?Patient denies?changing moles.?Psychiatric:?Denies?Anxiety.? * Medical History:? * Banana Loader History:?/ Para?1/1.?Sexual activity?currently sexually active.?Last Pap Smear:?05/11/2020 NIL, NEG HPV, 06/14/17 NIL, NEG HRHPV, 2015.?Mammogram:?05/2023 [facility], 04/2022 Per patient, 04/2021 PER PT IN [place], 05/07/20 [facility], [facility], 03/2017 normal (elsewhere), 2016 Dense Breasts.?Abnormal Pap Smear:?about 2011, positive HRHPV. COLP DONE, NIL SINCE.?LMP and menses?Occ with IUD.?History of STD's:?none.? Control:?Mirena 08/21/17.?Colonoscopy?03/2022.?*Hep B Vac?1998.?QUEEN PRODUCER HISTORY MISC.?06/14/17 Dense breasts counseling done. Taylor [...] , Kieran. ?Natural support system: yes. 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 ?Pets: dogs: 2 - lab-[employer]; husky-terrier. ?Sexual abuse: no. ?Sexually active: yes, [...] no acute distress, well developed, well nourished, propagator present in room.?HEAD:?normocephalic, atraumatic.?NECK/THYROID:?neck supple, full range [...] muscle mass and strength. 'Sarco' is the Tunisian word referring to flesh, and 'penia' means [...] * Follow Up:?1 Year (Reason: Y early Banana Loader Exam) * Images: Billing Information: * Visit Code:? 11216 Preventive Care Est Pt. Age 40-64. * Procedure Codes:? 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 She has been in state of [...] last mammogram was 04/2023, per pt, at [place]. She does not have a family history [...] ac alexis distress, well developed, well nourished, propagator present in room HEAD: normocephalic, atrau matic [...]
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
--- OUTSIDE RECORDS SUMMARY | 2024-05-07 15:57 | XMS_ITS | Patient Health Record ---
Author Organization [facility] Address [address] [place] [address] Care Team Providers Care Track Service Person Name Role Phone JOHNSON LE M.D. Primary Care Provider KEMI Syed Unavailable [phone] Allergies Allergen (clinical drug ingredient) Drug/Non Drug [...] Risk Notes Problem Excessive and frequent menstruation (984156541) Excessive and frequent menstruation with regular cycle (N92.0) Active confirmed Problem Postmenopausal bleeding (75314640) Postmenopausal bleeding (N95.0) Active confirmed Problem Attention deficit hyperactivity disorder, predominantly inattentive type (69451817) Attention-deficit hyperactivity disorder, predominantly inattentive type (F90.0) Active confirmed Problem Uncomplicated asthma (disorder) (299321376) Unspecified asthma, uncomplicated (J45.909) Active confirmed Problem Postcoital bleeding (80628708) Postcoital and contact bleeding (N93.0) Active confirmed Problem Abnormal uterine bleeding (54111984720820) Abnormal uterine and vaginal bleeding, unspecified (N93.9) Active confirmed Problem COVID-19 (383087678) COVID-19 (U07.1) Active confirmed Vital Signs Temperature 98.0 degrees Fahrenheit 01/24/2024 Blood pressure diastolic 78 mm Hg 01/24/2024 Height 64 in 01/24/2024 Blood pressure systolic 120 mm Hg 01/24/2024 Weight 146 lbs 01/24/2024 BMI 25.06 kg/m2 01/24/2024 Encounters Encounter Location Date Provider Diagnosis [address] [address] 01/24/2024 KEMI KENDALL Encounter for gynecological examination [...] Name:KEMI Kaylin Tolliver, 01/29/2025 10:30:00 AM, [address], [address], [place], [address], Insurance Providers Payer Name Payer Address Payer Phone Subscriber Number Group Number Insured Name Patient Relationship to Insured Coverage Start Date Coverage End Date [facility] [address] [place] [address] [id number] MARZENA RADNOLPH Self - patient is the insured Medical [...]
== END 2024-05-07 12:55 | disposition home or self-care (01) ==
LOC: HO.SH 12:54
PROVIDERS: Visit Provider Internal Medicine
DX: Z01.118 Encounter for examination of ears and hearing with other abnormal findings (principal); H93.293 Other abnormal auditory perceptions, bilateral
CPT/HCPCS: 92557; 92567

== ENCOUNTER 2024-08-10 12:53 | Outpatient (REF) | payer OTHER, SELFPAY ==
--- OUTSIDE RECORDS SUMMARY | 2024-08-10 13:15 | XMS_ITS | Patient Health Record ---
Author Organization [employer] [facility] Address [address] [place] [address] Care Team Providers Care Filter Tank Tender Helper Name Role Phone JOHNSON LE M.D. Primary Care Provider KEMI Syed Unavailable [phone] Allergies Allergen (clinical drug ingredient) Drug/Non Drug [...] take with fruit juices. Orally Once a day; Duration: 30 day(s) Active Albuterol PRN NEEDED Active [...] Risk Notes Problem Excessive and frequent menstruation (942235588) Excessive and frequent menstruation with regular cycle (N92.0) Active confirmed Problem Postmenopausal bleeding (90982172) Postmenopausal bleeding (N95.0) Active confirmed Problem Attention deficit hyperactivity disorder, predominantly inattentive type (45892474) Attention-deficit hyperactivity disorder, predominantly inattentive type (F90.0) Active confirmed Problem Uncomplicated asthma (disorder) (452231033) Unspecified asthma, uncomplicated (J45.909) Active confirmed Problem Postcoital bleeding (46502075) Postcoital and contact bleeding (N93.0) Active confirmed Problem Abnormal uterine bleeding (02692466292208) Abnormal uterine and vaginal bleeding, unspecified (N93.9) Active confirmed Problem COVID-19 (419202135) COVID-19 (U07.1) Active confirmed Vital Signs Temperature 98.0 degrees Fahrenheit 01/24/2024 Blood pressure diastolic 78 mm Hg 01/24/2024 Height 64 in 01/24/2024 Blood pressure systolic 120 mm Hg 01/24/2024 Weight 146 lbs 01/24/2024 BMI 25.06 kg/m2 01/24/2024 Encounters Encounter Location Date Provider Diagnosis [address] [address] 01/24/2024 KEMI KENDALL Encounter for gynecological examination [...] 3D 2018 Next Appt Details Provider Name:KEMI VICENTE Unruly, 01/29/2025 10:30:00 AM, [address], [address], [place], [address], Insurance Providers Payer Name Payer Address Payer Phone Subscriber Number Group Number Insured Name Patient Relationship to Insured Coverage Start Date Coverage End Date [facility] [address] [place] [address] [id number] MARZENA RANDOLPH Self - patient is the [...]
== END 2024-08-10 12:54 | disposition home or self-care (01) ==
LOC: HO.MAMMO 12:53
PROVIDERS: PCP Internal Medicine; Visit Provider Internal Medicine
DX: Z12.31 Encounter for screening mammogram for malignant neoplasm of breast (principal)
CPT/HCPCS: 77063; 77067

== ENCOUNTER → 2024-08-10 13:00 | Outpatient (BNV) | payer OTHER, SELFPAY | PROVIDERS: PCP Internal Medicine; Visit Provider Internal Medicine | DX: Z12.31 Encounter for screening mammogram for malignant neoplasm of breast (principal) | CPT/HCPCS: 77063; 77067 ==

== ENCOUNTER 2024-10-23 10:40 | Outpatient (REF) | payer OTHER, SELFPAY ==
[2024-10-23 10:50] LABS: MANUAL DIFF FLAG NO
[2024-10-23 11:18] LABS: Hematocrit 37.7 % (37.0-47.0); Hemoglobin 13.0 g/dl (12.0-16.0); Imm Gran Abs Auto 0.01 X10*3/uL (0.00-0.03); Imm Gran Pct Auto 0.3 % (0.0-0.4); Lymphocytes Absolute Auto 0.7 X10*3/uL (1.2-4.9); Mean Corpuscular HGB Conc 34.5 g/dl (31.0-35.0); Mean Corpuscular Hemoglobin 28.3 pg (27.0-33.0); Mean Corpuscular Volume 82.1 fL (80.0-98.0); NRBC Abs Auto 0.000 X10*3/uL (0.0-0.012); NRBC Pct Auto 0.0 /100WBC (0.0-0.2); Platelet Count 161 X10*3/uL (160-400); Red Blood Count 4.59 X10*6/uL (4.20-5.50); Reticulocytes Absolute 0.068 X10*6/uL (0.026-0.095); White Blood Count 3.7 X10*3/uL (4.8-10.8)
--- OUTSIDE RECORDS SUMMARY | 2024-10-23 12:15 | XMS_ITS | Patient Health Record ---
Author Organization [employer] [facility] Address [address] [place] [address] Care Team Providers Care Orthopedic Rn Name Role Phone JOHNSON LE M.D. Primary Care Provider KEMI Syed Unavailable [phone] Allergies Allergen (clinical drug ingredient) Drug/Non Drug [...] Risk Notes Problem Excessive and frequent menstruation (161676325) Excessive and frequent menstruation with regular cycle (N92.0) Active confirmed Problem Postmenopausal bleeding (97084785) Postmenopausal bleeding (N95.0) Active confirmed Problem Attention deficit hyperactivity disorder, predominantly inattentive type (52875383) Attention-deficit hyperactivity disorder, predominantly inattentive type (F90.0) Active confirmed Problem Uncomplicated asthma (disorder) (549839526) Unspecified asthma, uncomplicated (J45.909) Active confirmed Problem Postcoital bleeding (58263029) Postcoital and contact bleeding (N93.0) Active confirmed Problem Abnormal uterine bleeding (69089338744809) Abnormal uterine and vaginal bleeding, unspecified (N93.9) Active confirmed Problem COVID-19 (662614807) COVID-19 (U07.1) Active confirmed Vital Signs Temperature 98.0 degrees Fahrenheit 01/24/2024 Blood pressure diastolic 78 mm Hg 01/24/2024 Height 64 in 01/24/2024 Blood pressure systolic 120 mm Hg 01/24/2024 Weight 146 lbs 01/24/2024 BMI 25.06 kg/m2 01/24/2024 Encounters Encounter Location Date Provider Diagnosis [address] [address] 01/24/2024 KEMI KENDALL Encounter for gynecological examination [...] Name:KEMI VICENTE Unruly, 01/29/2025 10:30:00 AM, [address], [address], [place], [address], Insurance Providers Payer Name Payer Address Payer Phone Subscriber Number Group Number Insured Name Patient Relationship to Insured Coverage Start Date Coverage End Date [facility] [address] [place] [address] [id number] MARZENA RANDOLPH Self - patient is the [...]
[2024-10-23 12:35] LABS: Alanine Aminotransferase 32 U/L (0-31); Albumin Level 4.7 g/dL (3.5-5.0); Alkaline Phosphatase 100 U/L (39-117); Anion Gap 10 (12-20); Aspartate Amino Transferase 28 U/L (5-31); Blood Urea Nitrogen 15 mg/dL (9-16); Calcium 9.1 mg/dL (8.4-10.2); Carbon Dioxide 29 mmol/L (22-29); Chloride 105 mmol/L (96-108); Cholesterol 164 mg/dL (<200); Estimated Glomerular Filt Rate 58; HDL Cholesterol 62 mg/dL (>40); Iron 92 mcg/dL (30-160); Percent Iron Saturation 35 % (15-50); Potassium 3.7 mmol/L (3.3-5.1); Sodium 140 mmol/L (135-145); Total Iron Binding Capacity 264 mcg/dL (228-428); Total Protein 7.3 g/dL (6.5-8.0); Triglycerides 48 mg/dL (<150); Unsaturated Iron Binding 172 ug/dL
[2024-10-23 12:40] LABS: Ferritin 115 ng/mL (10-250); Free T4 (Free Thyroxine) 1.00 ng/dL (0.71-1.85); Thyroid Stimulating Hormone 1.44 uIU/mL (0.32-4.0)
[2024-10-23 12:56] LABS: Folate 12.9 ng/mL (> or = 4.0); Vitamin B12 801 pg/mL (200-900)
== END 2024-10-23 10:41 | disposition home or self-care (01) ==
LOC: HO.LAB 10:40
PROVIDERS: PCP Internal Medicine; Visit Provider Internal Medicine
DX: F41.1 Generalized anxiety disorder (principal); E78.00 Pure hypercholesterolemia, unspecified
CPT/HCPCS: 36415; 80053; 80061; 82306; 82607; 82728; 82746; 83540; 84439; 84443; 85025; 85045

== ENCOUNTER 2024-12-22 11:28 | Outpatient (AMB) | payer OTHER, SELFPAY ==
[2024-12-22 11:39] VITALS: BP 118/78; PULSE 77; TEMP 36.3; O2SAT 97; BMI 26.4
--- NOTE | 2024-12-22 11:39 | A.OFFPC_ITS ---
Vital Signs 12/22/24 11:39 Height 5 ft 3 in Weight 149 lb 2 oz BMI 26.4 BP 118/78 Blood Pressure Location Lt brachial Position Sitting Pulse 77 Pulse Source Pulse Oximeter Temp 97.3 F Temp Source Temporal Artery Scan Pulse Oximetry (%) 97 Oxygen Delivery Method Room Air Intake Visit Reasons: Tick bite Allergies amoxicillin Allergy (Unknown, Verified 12/22/24 11:42) Unknown Penicillins Allergy (Unknown, Verified 12/22/24 11:42) Unknown Medication List - Last Reconciled 12/22/24 by Marlena Monaco MD albuterol sulfate 90 mcg/actuation 2 puffs inhalation Q6H PRN bupropion HCl XL 300 mg PO QAM 90 days doxycycline hyclate 100 mg PO BID 10 days fexofenadine 180 mg PO DAILY multivitamin (Daily Multi-Vitamin tablet) 1 tab PO DAILY [probiotic ] Tobacco use date assessed: 12/22/24 Dental Screening Dental Screen Date: 12/22/24 Did you have a dental visit in the last 12 months?: Yes Did you have a dental problem in the last 6 months where you did not have access to dental care?: No Was dental information given to patient?: Patient has dentist HPI HPI Comments History of Present Illness Details The patient is a 49-year-old female presenting for evaluation of a tick bite. She discovered and removed a tick from the left side of her abdomen on Saturday and is concerned about potential Lyme disease. The duration of the tick's attachment is unknown, but she suspects it may have been for a few days, possibly longer than 24 hours. The patient reports that the area is warm and she has been applying antibacterial cream. She reports feeling a little rundown and chilly this morning but denies any fever, headaches, or myalgias. The patient has no personal history of Lyme disease and has never previously received a course of antibiotics for a tick bite. She notes that [place] frequently in [place] and takes precautions such as wearing bright colors and checking for ticks. [facility] Medical History Colon cancer screening Dental abscess Cervical dysplasia Dysplasia of acetabulum ADHD Adnexal cyst Asthma Surgical History H/O colonoscopy Hx of cystoscopy History of endoscopy History of in vitro fertilization History of section Family History Father CAD (coronary artery disease) S/P CABG x 1 Diabetes Hypertension CVD (cardiovascular disease) Mother No problems noted. Maternal Grandmother Lymphoma Brother Bipolar 1 disorder Other Mental health disorder Social History Housing: Apartment Alcohol intake: current Comment: 1 glass a week or 2 glasses a month Patient Tobacco Use Status: Never used Tobacco e-Cigarette/Vaping Use: Never Used Second Hand Smoke Exposure: No service: No Current occupational status: employed Cognitive needs: No Hearing needs: No Vision needs: No Questionnaire PHQ-9 Over the last 2 weeks, how often have you been bothered by any of the following problems? 1. Little interest or pleasure in doing things: not at all 2. Feeling down, depressed, or hopeless: not at all 3. Trouble falling or staying asleep, or sleeping too much: not at all 4. Feeling tired or having little energy: not at all 5. Poor appetite or overeating: not at all 6. Feeling bad about yourself - or that you are a failure or have let yourself or your family down: not at all 7. Trouble concentrating on things, such as reading the newspaper or watching television: not at all 8. Moving or speaking so slowly that other people could have noticed. Or the opposite - being so fidgety or restless that you have been moving around a lot more than usual: not at all 9. Thoughts that you would be better off or of hurting yourself in some way: not at all Total score: 0 Depression Screening Interpretation: Negative Depression Screening Done: Yes Source: Developed by Drs. Dameon Velarde, Diamond Padron, Iglesia Dillard and colleagues, with an educational mare from [employer]. Thrive Questionnaire Date Thrive assessed: 04/08/24 I am a: Patient What is your living situation today?: I have a steady place to live Within the past 12 months, did the food you bought not last and you didn't have the money to get more?: Never true Within the past 12 months, did you worry whether your food would run out before you got money to buy more?: Never true Do you have trouble paying for medicines?: No Do you have trouble getting transportation to medical appointments?: No Do you have trouble paying your heating and electricity bill?: No Do you have trouble taking care of your child, family member or friend?: No Do you have trouble with day-to-day activities such as bathing, preparing meals, shopping, managing finances, etc.?: No Are you currently unemployed and looking for a job?: No Are you interested in more education?: No Please select the resources that you would like help with: None THRIVE Score: 0 AUDIT C Alcohol Use Questionnaire (AUDIT-C) 1. How often do you have a drink containing alcohol?: 2-4 times a month 2. How many drinks containing alcohol do you have on a typical day when you are drinking?: 1 or 2 3. How often do you have six or more drinks on one occasion?: Never Total Score: 2 DRAIA-7 AMB Questionnaire DARIA-7 Date DARIA - 7 assessed: 04/10/24 Feeling nervous, anxious, or on edge: 1 = Several days Not being able to stop or control worryin = Not at all Worrying too much about different things: 1 = Several days Trouble relaxin = Not at all Being so restless that it is hard to sit still: 0 = Not at all Becoming easily annoyed or irritable: 0 = Not at all Feeling afraid as if something awful might happen: 0 = Not at all Total DARIA-7 score (0-4 normal; 5-9 mild; 10-14 moderate; 15-21 severe): 2 Source: Developed by Drs. Dameon Velarde, Diamond Padron, Iglesia Dillard and colleagues, with an educational mare from [employer]. Physical exam (Primary Care) Vital Signs: Last Vital Signs Temp 97.3 F 12/22/24 11:39 Pulse 77 12/22/24 11:39 BP 118/78 12/22/24 11:39 Pulse Ox 97 12/22/24 11:39 Oxygen Delivery Method Room Air 12/22/24 11:39 General: Well-appearing, alert, oriented ?3, in no acute distress. Cardiovascular: RRR, S1-S2 appreciated, no murmurs, rubs or gallops. Respiratory: Lungs clear to auscultation bilaterally, no wheezes, rales or rhonchi. Abdomen: Soft, nontender, nondistended. Normoactive bowel sounds. Skin: On inspection of the abdomen, there is a single erythematous patch on the left lower side, approximately 5 cm in diameter with a central punctum consistent with a recent tick bite, warmth to touch. No induration, No vesiculation, crusting, or scaling noted. BMI result Body Mass Index 26.4 Tobacco/Smoking Status: Tobacco use Status Tobacco use date assessed 12/22/24 12/22/24 11:43 Patient Tobacco Use Status Never used Tobacco 12/22/24 11:43 e-Cigarette/Vaping Use Never Used 12/22/24 11:43 PHQ-9: PHQ-9 Score PHQ-9: Total score 0 12/22/24 11:43 Depression Screening Interpretation: Negative Thrive Assessment: Date of Thrive Assessment Date Thrive assessed 04/08/24 12/22/24 11:43 Coding Level of Care Code Est Pt Level 2 (01545) Diagnoses Tick bite of abdomen, initial encounter S30.861A; W57.XXXA Encounter type: initial encounter Assessment & Plan Assessment & Plan (1) Tick bite of abdomen: Code(s): S30.861A - Insect bite (nonvenomous) of abdominal wall, initial encounter; W57.XXXA - Bitten or stung by nonvenomous insect and other nonvenomous arthropods, initial encounter Qualifiers: Encounter type: initial encounter Qualified Code(s): S30.861A - Insect bite (nonvenomous) of abdominal wall, initial encounter; W57.XXXA - Bitten or stung by nonvenomous insect and other nonvenomous arthropods, initial encounter Plan: The patient presents after a tick bite of unknown duration on her left abdomen, with local inflammation and erythema. Given the uncertainty of attachment time, will start empiric treatment with doxycycline 100 mg twice daily for 10 days. B lood work at this time would not be diagnostic. Local reactions inflammatory and not a bacterial infection, antibacterial cream is unnecessary at this time. Topical antihistamine may help, prescription sent. Medications: New doxycycline hyclate 100 mg PO BID 20 caps 0RF tick bite 10 days diphenhydramine-zinc acetate 1-0.1 % (Anti-Itch (diphenhydramine) with Zinc) 1 appl topical BID PRN 28 grams 0RF itching
--- OUTSIDE RECORDS SUMMARY | 2024-12-22 13:36 | XMS_ITS | Patient Health Record ---
Author Organization [facility] Address [address] [place] [address] Care Team Providers Care Pewter Finisher Name Role Phone JOHNSON LE M.D. Primary Care Provider KEMI Syed Unavailable [phone] Allergies Allergen (clinical drug ingredient) Drug/Non Drug [...] Risk Notes Problem Excessive and frequent menstruation (458553054) Excessive and frequent menstruation with regular cycle (N92.0) Active confirmed Problem Postmenopausal bleeding (16647587) Postmenopausal bleeding (N95.0) Active confirmed Problem Attention deficit hyperactivity disorder, predominantly inattentive type (55519467) Attention-deficit hyperactivity disorder, predominantly inattentive type (F90.0) Active confirmed Problem Uncomplicated asthma (disorder) (690820750) Unspecified asthma, uncomplicated (J45.909) Active confirmed Problem Postcoital bleeding (91826148) Postcoital and contact bleeding (N93.0) Active confirmed Problem Abnormal uterine bleeding (15443037274642) Abnormal uterine and vaginal bleeding, unspecified (N93.9) Active confirmed Problem COVID-19 (393850253) COVID-19 (U07.1) Active confirmed Vital Signs Temperature 98.0 degrees Fahrenheit 01/24/2024 Blood pressure diastolic 78 mm Hg 01/24/2024 Height 64 in 01/24/2024 Blood pressure systolic 120 mm Hg 01/24/2024 Weight 146 lbs 01/24/2024 BMI 25.06 kg/m2 01/24/2024 Encounters Encounter Location Date Provider Diagnosis [address] [address] 01/24/2024 KEMI KENDALL Encounter for gynecological examination [...] Name:KEMI VICENTE Unruly, 01/29/2025 10:30:00 AM, [address], [address], [place], [address], Insurance Providers Payer Name Payer Address Payer Phone Subscriber Number Group Number Insured Name Patient Relationship to Insured Coverage Start Date Coverage End Date [facility] [address] [place] [address] [id number] MARZENA RANDOLPH Self - patient is the [...]
== END 2024-12-22 12:00 | disposition home or self-care (01) ==
LOC: HO.HMCH 11:29
PROVIDERS: PCP Internal Medicine; Visit Provider Student in an Organized Health Care Education/Training Program
DX: S30.861A Insect bite (nonvenomous) of abdominal wall, initial encounter (principal); W57.XXXA Bitten or stung by nonvenomous insect and other nonvenomous arthropods, initial encounter